=== PATIENT | female | born 1990 | race Caucasian/White ===

== ENCOUNTER 2021-01-23 01:22 | Inpatient (IN) ==
[2021-01-23] MEDS ORDERED: ONDANSETRON 4 MG/2 ML VIAL IV PRN (01:40)
[2021-01-23] MEDS ORDERED: BUTORPHANOL 2 MG/ML VIAL IV PRN (01:40)
[2021-01-23] MEDS ORDERED: MEPERIDINE 50 MG/1 ML VIAL IV PRN (01:40)
[2021-01-23] MEDS ORDERED: LACTATED RINGERS 250 ML IV PRN (01:43)
[2021-01-23] MEDS ORDERED: NALOXONE 0.4 MG/ML VIAL IV PRN (01:43)
[2021-01-23] MEDS ORDERED: diphenhydrAMINE 50 MG/1 ML VIAL IV PRN ×2 (01:43)
[2021-01-23] MEDS ORDERED: ONDANSETRON 4 MG/2 ML VIAL IV ONE (01:43)
[2021-01-23] MEDS ORDERED: PROMETHAZINE 25 MG/1 ML VIAL IM ONE (01:43)
[2021-01-23] MEDS ORDERED: ePHEDrine 50 MG/ML VIAL IV PRN (01:43)
[2021-01-23] MEDS ORDERED: CITRIC ACID/SODIUM CITRATE 30 ML UDCUP PO ONE (01:43)
[2021-01-23] MEDS ORDERED: FAMOTIDINE 20 MG/2 ML VIAL IV ONE (01:43)
[2021-01-23] MEDS ORDERED: hydrOXYzine HCL 25 MG/1 ML VIAL IM PRN (01:43)
[2021-01-23] MEDS ORDERED: LACTATED RINGERS 1,000 ML IV ONE (01:43)
[2021-01-23] MEDS ORDERED: fentaNYL 2 MCG/ROPIV 0.2% EPID 100 ML EPIDURAL SCH (02:00)
[2021-01-23] MEDS ORDERED: LACTATED RINGERS 1,000 ML IV SCH ×2 (02:00)
[2021-01-23] MEDS ORDERED: AMPICILLIN INJ 2,000 MG in SODIUM CHLORIDE 0.9% 100 ML IV ONE (02:10)
[2021-01-23 02:11] LABS: Basophils % 0.3 % (0.0-0.8); Eosinophils # 0.4 10*3/uL (0.0-0.87); Eosinophils % 3.9 % (0.00-10.9); Hematocrit 34.2 VOL% (35.7-47.0); Hemoglobin 11.8 GM/DL (12.0-16.0); Immature Granulocytes % 0.3 %; Immature Granulocytes Absolute 0.03 #; Lymphocytes # 2.4 10*3/uL (1.4-4.0); Lymphocytes % 25.7 % (21.3-54.2); Mean Corpuscular HGB Conc 34.5 GM/DL (32-36); Mean Corpuscular Volume 85.7 FL (87-102); Mean Platelet Volume 10.7 FL (9.6-12.0); Monocytes % 7.1 % (1.7-12.7); Neutrophils % 62.7 % (38.7-73.9); Platelet Count 177 T/CUMM (130-400); Red Blood Count 3.99 MC/CUMM (3.8-5.5); Red Cell Distribution Width 13.2 % (9.3-17.3); White Blood Count 9.2 T/CUMM (4-12)
[2021-01-23 02:32] LABS: Alanine Aminotransferase 17 U/L (13-56); Albumin 2.8 G/DL (3.4-5.0); Alkaline Phosphatase 124 U/L (45-117); Aspartate Amino Transferase 14 U/L (0-37); Bilirubin,Total < 0.39 MG/DL (0.2-1.0); Blood Urea Nitrogen 10 MG/DL (7-18); Calcium 9.4 MG/DL (8.5-10.1); Carbon Dioxide 20 MMOL/L (21-32); Estimated Glom Filtration Rate 142 ML/MIN; Glucose 107 MG/DL (74-106); Osmolality,Calculated 275.5 MOS/KG (273-304); Potassium 3.7 MMOL/L (3.5-5.1); Sodium 139 MMOL/L (136-145); Total Protein 7.1 G/DL (6.4-8.2)
[2021-01-23 04:13] LABS: Bilirubin,Urine Negative (Negative); Blood, Urine Negative (Negative); Glucose,Urine (UA) Negative (Negative); Ketones,Urine Negative (Negative); Mucus,Urine Occasional /LPF (Occasional); Nitrite,Urine Negative (Negative); Protein,Urine Negative; RBC,Urine <1 /HPF (0-4); Squamous Epithelial Cell,Urine Occasional /HPF (0-10); Urine Appearance CLEAR (Clear); Urine Color Yellow (Yellow); Urine Specific Gravity 1.012 (1.001-1.035); Urine Urobilinogen < 2.0 EU/DL (0.2-1.0)
[2021-01-23] MEDS: OXYTOCIN/LR 20 UNIT/1,000 ML BAG IV SCH ×2 (05:54→10:53)
[2021-01-23] MEDS ORDERED: AMPICILLIN INJ 1,000 MG in SODIUM CHLORIDE 0.9% 100 ML IV SCH (06:20)
[2021-01-23 08:01] LABS: Cord Venous Blood HCO3 22.6 MMOL/L; Cord Venous Blood PCO2 42.5 MMHG; Cord Venous Blood PO2 32.1
[2021-01-23] MEDS: IBUPROFEN 800 MG TABLET PO PRN ×2 (11:29→17:52)
[2021-01-23] MEDS ORDERED: BENZOCAINE 20%/MENTHOL 0.5% SPRAY 56 GM CAN TOP PRN (19:24)
[2021-01-23] MEDS: DOCUSATE SODIUM 100 MG CAPSULE PO SCH (21:05)
[2021-01-24] MEDS: IBUPROFEN 800 MG TABLET PO PRN ×4 (01:29→23:15)
[2021-01-24 06:48] LABS: Basophils % 0.4 % (0.0-0.8); Eosinophils # 0.4 10*3/uL (0.0-0.87); Eosinophils % 4.1 % (0.00-10.9); Hematocrit 33.1 VOL% (35.7-47.0); Immature Granulocytes % 0.4 %; Immature Granulocytes Absolute 0.04 #; Lymphocytes # 2.6 10*3/uL (1.4-4.0); Lymphocytes % 27.6 % (21.3-54.2); Mean Corpuscular HGB Conc 33.2 GM/DL (32-36); Mean Corpuscular Volume 87.3 FL (87-102); Mean Platelet Volume 10.5 FL (9.6-12.0); Monocytes % 5.3 % (1.7-12.7); Neutrophils % 62.2 % (38.7-73.9); Platelet Count 156 T/CUMM (130-400); Red Blood Count 3.79 MC/CUMM (3.8-5.5); Red Cell Distribution Width 13.2 % (9.3-17.3); White Blood Count 9.6 T/CUMM (4-12)
[2021-01-24] MEDS: DOCUSATE SODIUM 100 MG CAPSULE PO SCH ×2 (09:20→21:07)
[2021-01-25] MEDS ORDERED: LANOLIN 50% CREAM 0.3 OZ TUBE TOP PRN (06:37)
[2021-01-25 07:59] VITALS: BP 124/70
[2021-01-25] MEDS: DOCUSATE SODIUM 100 MG CAPSULE PO SCH (09:21)
== END 2021-01-25 11:45 | disposition home or self-care (01) | DRG 807 ==
LOC: N.LDOUT 01:22 → N.LD 01:24 → N.OB 11:13
PROVIDERS: ADMIT Specialist; ATTEND Specialist